=== PATIENT | male | born 1930 | race Caucasian/White ===

== ENCOUNTER 2018-12-20 10:11 | Emergency (ER) | payer OTHER ==
[~2018-12-20] VITALS: Ht 165.1 cm; Wt 84.8 kg
[~2018-12-20 10:11] MED LIST: NO HOME MEDS; NORCO 5-325 TA1 EACH PO
--- NOTE | 2018-12-20 11:38 | NUR ---
[facility] FAXED REFERRAL TO [facility] SPOKE WITH ARTHUR IN ADM, SHE RECEIVED REFERRAL AND WILL SEND A HOSPICE NURSE TO [facility]. SIENNA TO FOLLOW.
--- NOTE | 2018-12-20 17:24 | EKG ---
[id number] [place] [address] ELECTROCARDIOGRAM REPORT Name: PRISCILLA VILLALOBOS Room #: REG AIME Moreno#: [id number] ������������������ Admission: 12/20/18 ������������������ Attend Phys: Discharge: ������������������ Date of : 32 Report #: [id number] ����������������������������������������������������������������� [id number] THIS REPORT FOR: //name// [facility] ED Test Date: 2018-12-20 Test Time: 10:26:49 Pat Name: PRISCILLA VILLALOBOS Department: Room: Gender: [employer]: : 1930 Requested By: Nena Kumar Order Number: [id number] MD: Humberto Roth Measurements Intervals Justice Rate: 82 P: 56 AK: 168 QRS: -21 QRSD: 108 T: 53 QT: 400 QTc: 468 Interpretive Statements Sinus rhythm Abnormal R-wave progression, late transition Possible inferior infarct, age indeterminate No previous ECG available for comparison Electronically Signed On 12-20-2018 17:23:45 CDT by Humberto Roth [email or web address] ��������������������������������������������� <ELECTRONICALLY SIGNED> ���������������������������������������� By: Humberto Roth MD, [facility] ��������������������������������������������� 12/20/18 1723 1026 1026 Humberto Roth MD, FACC /EPI
[2018-12-20 20:28] VITALS: BP 106/55
== END 2018-12-20 20:29 | disposition short-term general hospital (02) ==
LOC: ER 10:11
DX: R41.82 Altered mental status, unspecified (principal); S00.83XA Contusion of other part of head, initial encounter; I73.9 Peripheral vascular disease, unspecified; X58.XXXA Exposure to other specified factors, initial encounter; Y93.89 Activity, other specified; Y92.89 Other specified places as the place of occurrence of the external cause; Y99.8 Other external cause status